=== PATIENT | female | born 1950 | race Caucasian/White ===

== ENCOUNTER 2019-04-16 06:56 | Observation (INO) | payer MEDICARE | END 2019-04-17 10:10 | disposition home or self-care (01) | LOC: DAH 06:56 → WSH 11:55 → DAH 06:56 → WSH 06:57 ==

== ENCOUNTER → 2022-02-21 | Outpatient (CLI) | payer MEDICARE ==
[~2022-02-21] MED LIST: ATOR20TA65 PO; METF-444 PO; TIMO5SOL10 OU; TRAV2.5D OU; TRAZ-185 PO
== END | disposition home or self-care (01) ==
LOC: RAH 11:56
PROVIDERS: ATTEND Internal Medicine
DX: M79.604 Pain in right leg (principal); K40.91 Unilateral inguinal hernia, without obstruction or gangrene, recurrent; R10.2 Pelvic and perineal pain
CPT/HCPCS: 73502; 76882